=== PATIENT | male | born 1990 | race Caucasian/White ===

== ENCOUNTER 2018-12-18 11:49 | Outpatient (CLI) | payer BC ==
--- NOTE | 2018-12-19 13:59 | Diagnostic Imaging Report ---
Indication: Pain, status post pelvic surgery for pelvic trauma Technique: AP and lateral views of the pelvis Comparison: none Findings: Lateral view is limited; only a crosstable lateral image could be obtained, due to the presence of hardware protruding outside the body; this demonstrates suboptimal contrast and per technologist patient did not wish image repeat. Lateral view does demonstrate hardware positions adequately There is a screw extending from the left iliac bone across the sacrum to the right iliac bone. A screw is seen extending from the left iliac bone to the mid sacrum, and a symmetrical screw is seen extending from the right iliac bone to the sacrum. No definite sacral fracture is demonstrated, sacrum and iliac bones appear well aligned. 2 surgical nails are seen, one into each of the iliac bone seen in the supra-acetabular region. These extend outside the body and are connected by an external fixator. There is a comminuted fracture of the right medial pubic bone, extending both superiorly and inferiorly. This is somewhat angulated and the superior component of the fracture is distracted by approximately 5 mm. There is a nondisplaced fracture of the left inferior pubic ramus, and another nondisplaced fracture of the left superior pubic ramus. The hip joints appear intact. Impression: Postsurgical and posttraumatic changes, as described
== END 2018-12-18 13:49 | disposition home or self-care (01) ==
LOC: RAD 11:49
DX: S32.810B Multiple fractures of pelvis with stable disruption of pelvic ring, initial encounter for open fracture (principal); X58.XXXA Exposure to other specified factors, initial encounter; Y92.9 Unspecified place or not applicable
CPT/HCPCS: 72170